=== PATIENT | female | born 1950 | race Caucasian/White ===

== ENCOUNTER 2020-03-14 10:40 | Outpatient (CLI) | payer MEDICARE, SELFPAY ==
--- NOTE | ~2020-03-14 | MR_ITS ---
EXAMINATION: MR chest wo con DATE: 03/14/2020 12:23 INDICATION: Anterior superior right chest mass. TECHNIQUE: Magnetic resonance imaging (MRI) of the chest was performed without intravenous contrast. Sequences included axial, coronal, and sagittal T1-weighted FSE, axial, coronal, and sagittal T2-weig hted FS FSE, coronal STIR FSE, axial T1-weighted FS FSE. COMPARISON: Right clavicle radiographs 10/20/2019 FINDINGS: There is a skin marker superficial to the medial right clavicle. Bone alignment is normal. No fracture. Bone marrow signal intensity is normal. There is no significant arthritis at the sternoc lavicular joints. There is a small effusion of right sternoclavicular joint. IMPRESSION: 1. Small effusion of the right sternoclavicular joint. Reviewed, dictated and finalized at location A.
== END 2020-03-14 10:41 | disposition home or self-care (01) ==
PROVIDERS: PCP Internal Medicine; Visit Provider Orthopaedic Surgery
DX: R22.2 Localized swelling, mass and lump, trunk (principal); M25.411 Effusion, right shoulder
CPT/HCPCS: 71550

== ENCOUNTER → 2020-11-22 16:16 | Outpatient (CLI) | payer MEDICARE, SELFPAY ==
--- NOTE | ~2020-11-22 | MM_ITS ---
EXAMINATION: MM screening [facility] BI w gwen HISTORY: Screening mammogram TECHNIQUE: Craniocaudal and mediolateral oblique 3-D tomosynthesis images were obtained and synthetic 2-D images were generated. CAD analysis was submitted and interpreted. COMPARISON: 10/14/2019, 08/29/2018, 08/07/2017 by lateral digital screening mammogram examinations BREAST PARENCHYMAL COMPOSITION: There are scattered areas of fibroglandular density. FINDINGS: There is no evidence of suspicious mass, calcification, or architectural distortion to sugg est malignancy in either breast. There has been no suspicious interval change. IMPRESSION: 1. No mammographic evidence of malignancy. 2. Recommend routine screening mammography in one year. BI-RADS Category 1: Negative Reviewed, dictated and finalized at location A. 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
== END ==
PROVIDERS: PCP Internal Medicine; Visit Provider Obstetrics & Gynecology Gynecology
DX: Z12.31 Encounter for screening mammogram for malignant neoplasm of breast (principal)
CPT/HCPCS: 77063; 77067

== ENCOUNTER 2021-04-27 14:00 | Outpatient (RCR) | payer MEDICARE, SELFPAY ==
--- NOTE | 2021-04-01 13:52 | PTOPEVAL ---
PHYSICAL THERAPY EVALUATION Thank you for referring Emily Ash to [facility].? Emily was evaluated for the dx of jaxson. hip bursitis. The patient is scheduled to be seen for therapy?2 x/week for 4 weeks. Please review, sign, date and return this plan of care OLIVIA. I agree with and certify that the following plan of care is medically necessary. Referring Physician Date Referring Provider: Duane Laurent MD *PT Outpatient Evaluation Start: 04/01/21 12:33 Freq: Status: Active Protocol: Document 04/01/21 12:34 MLV (Rec: 04/01/21 13:42 MLV [id number]) Therapy Assessment Status Assessment Status Assessment Status Evaluation Evaluation Information Problem Diagnosis jaxson hip bursitis Onset Oct 2020 Cause none Additional Evaluation Detail The patient began having jaxson. hip pain without an injury. The patient has right hip pain with walking and left hip pain with sit to stand motions . The patient likes to exercise with walking and riding a bicycle. The patient is retired and does her housework, cooking, and yardwork. Patient reports difficulty with house and yard work due to hip pain; affecting about 50% of normal tolerance. The patient is sleeping 25% less well due to hip pain also. Diagnostic Tests X-Rays For This Problem Yes: bursitis and OA jaxson. hips Pain Assessment Timing of Pain Assessment Timing of Pain Assessment Assessment Pain Scale Pain Scale Used Numeric (1 - 10) Self Report Pain Assessment Bilateral Hip(s) Reported Pain Level 0 Other Pain Description 6 with sleeping, 7 with movements at hips Pain Aggravating Factors Prolonged Position,Walking, Weight Bearing/Standing Other Pain Aggravating Factors sidelying Pain Score Pain Score 0: Self Report Interventions Used Interventions Used By Clinicians Education Pain Relief Interventions Used By Exercise,Medication,Position Patient Change Other Alleviating Interventions advil prn Lower Extremity Range of Motion General Lower Extremity Range of Motion Gross Lower Extremity Range of Motion right LE: hip IR 31', ER 38', Comments 90/90 hamstring -20', knee 0- 132', hip abduction/Kirstin WFL's,
--- NOTE | 2021-04-20 14:13 | PCPTNOTE ---
Patient did not show up for scheduled appointment this date. Called patient, left message with details on next appt time.
--- NOTE | 2021-06-10 15:43 | PCPTNOTE ---
PHYSICAL THERAPY DISCHARGE Attending Provider: Duane Laurent MD Patient:Emily Ash Date of :1950 Patient has not returned for any further treatments since 04/27/2021, therefore she will be discharged at this time. Patient?s initial visit was on 04/01/2021 12:30 and she had a total of 6 visits. The goals have been partially met. Thank you for referring this patient to [facility]. Please review, sign, date and return this discharge summary OLIVIA. I have been updated about the patient's current status and I agree with discharge from the above service at this time. Referring Physician Date
== END 2021-06-13 11:18 | disposition home or self-care (01) ==
LOC: ANHPT 14:00
PROVIDERS: PCP Internal Medicine; Referring Provider Orthopaedic Surgery; Visit Provider Orthopaedic Surgery
DX: M25.551 Pain in right hip (principal); M25.562 Pain in left knee; M71.9 Bursopathy, unspecified
CPT/HCPCS: 97014; 97110; 97140; 97162; G0283

== ENCOUNTER 2021-05-06 15:47 | Emergency (ER) | payer MEDICARE, SELFPAY ==
--- NOTE | ~2021-05-06 | CT_ITS ---
EXAMINATION: CT brain wo con DATE: 05/06/2021 18:23 INDICATION: Headache. TECHNIQUE: Computed tomography (CT) of the head was performed without intravenous contrast. The mA wa s adjusted according to patient size. Iterative reconstruction technique was employed. The dose-lengt h product was 529.67 mGy-cm. COMPARISON: Head CT 05/22/2017 FINDINGS: There is no intracranial hemorrhage, acute infarction, or abnormal intracranial mass lesion . The ventricles are normal in size. The orbits are normal. There is mucosal thickening in the parana gerber sinuses. There is near complete opacification of left sphenoid sinus with thickening and sclerosi s of the sinus barnes, consistent with chronic sinusitis. The mastoid air cells are normal. IMPRESSION: 1. Normal brain. 2. Chronic sinusitis. Reviewed, dictated and finalized at location A.
--- NOTE | ~2021-05-06 | XR_ITS ---
EXAMINATION: XR chest 2V DATE: 05/06/2021 16:42 INDICATION: Shortness of breath. TECHNIQUE: Frontal and lateral views of the chest were obtained. COMPARISON: Chest 2 views 05/22/2017, CT abdomen and pelvis 12/18/2018 FINDINGS: The chest demonstrates clear lungs without pneumonia, pleural effusion, or pneumothorax. Th e heart size is normal. Surgical clips in the right upper quadrant are likely from cholecystectomy. IMPRESSION: 1. No acute cardiopulmonary disease. Reviewed, dictated and finalized at location A.
--- NOTE | 2021-05-06 16:13 | ECG_ITS ---
Measurements Intervals [place] Rate: 110 P: 59 MN: 140 QRS: 33 QRSD: 109 T: 47 QT: 347 QTc: 470 Interpretive Statements SINUS TACHYCARDIA INCOMPLETE RIGHT BUNDLE BRANCH BLOCK BORDERLINE ST ABNORMALITY- ANTEROLAT/INF LEADS BASELINE ARTIFACT- V4 ABNORMAL ECG Electronically Signed On 05-06-2021 16:21:14 CDT by Bahman Hernandez D.O.
[2021-05-06 16:16] VITALS: BP 203/103; PULSE 118; RESP 20; TEMP 36.8; O2SAT 100
[2021-05-06 16:37] LABS: Basophils Absolute Auto 0.1 K/mm3 (0.0-0.1); Basophils Percent Auto 0.9 % (0.2-1.2); Eosinophils Absolute Auto 0.2 K/mm3 (0-0.3); Eosinophils Percent Auto 2.3 % (0-4.4); Hematocrit 39.6 % (37.0-47.0); Hemoglobin 13.1 g/dL (12.0-15.0); Immature Granulocyte Absolute 0.02 K/mm3 (0.00-0.031); Immature Granulocyte Percent A 0.3 % (0-0.5); Lymphocytes Absolute Auto 1.03 K/mm3 (0.9-3.2); Lymphocytes Percent Auto 16.1 % (18.3-44.2); Mean Corpuscular HGB Conc 33.1 g/dl (32-36); Mean Corpuscular Hemoglobin 29.5 pg (26-34); Mean Corpuscular Volume 89.2 fl (80-100); Mean Platelet Volume 9.3 fl (7.4-10.4); Monocytes Absolute Auto 0.6 K/mm3 (0.1-0.6); Neutrophils Absolute Auto 4.6 K/mm3 (1.3-6.7); Neutrophils Percent Auto 71.4 % (45.5-73.1); Platelet Count Result 322 k/mm3 (150-375); Red Blood Count 4.44 M/mm3 (4.2-5.4); Red Cell Distribution Width 12.5 % (11.5-14.5); White Blood Count 6.4 K/mm3 (4.5-10.0)
[2021-05-06 16:47] LABS: INR 0.9; Prothrombin Time 12.2 Seconds (11.1-14.7)
[2021-05-06 16:48] LABS: Partial Thromboplastin Time 25.7 SECONDS (22.3-36.8)
[2021-05-06 16:52] LABS: Anion Gap 13 mmol/L (8-16); Blood Urea Nitrogen 15 mg/dL (7-17); Calcium 9.8 mg/dL (8.4-10.2); Carbon Dioxide 22 mmol/L (22-30); Chloride 103 mmol/L (98-107); Estimated CRCL calculation 56 ml/min; Estimated Glomerular Filt Rate > 60; Glucose 112 mg/dL (65-110); Potassium 3.5 mmol/L (3.4-5.0); Sodium 138 mmol/L (137-145)
[2021-05-06 17:39] LABS: Troponin I < 0.012 ng/mL (0.000-0.034)
--- NOTE | 2021-05-06 17:57 | ED.GENADULT ---
HPI - General Adult General Chief complaint: Recheck/Abnormal Lab/Rx Stated complaint: elevated blood pressure Time Seen by Provider: 05/06/21 17:10 Source: patient and RN notes reviewed Mode of arrival: ambulatory Limitations: no limitations History of Present Illness HPI narrative: This is a 70 year old female with history of anxiety who presents for evaluation of headache and elevated blood pressure. Patient states this morning she developed a mild frontal headache while she was working outside. She states her headache has gradually worsened throughout the day . She describes headache as throbbing, and she denies associated nausea, focal weakness, numbness, or blurred vision. She has been taking her blood pressure daily due to high blood pressure on her last doctor visit. Her BP was elevated at her last doctor visit but it has been fine over the past 2 weeks when she is at home. She states her blood pressure is frequently high at doctors' offices. Today she checked her blood pressure and it was elevated. She has checked it multiple times today and she states each time her pressure was higher. She denies chest pain, sob. She does reports anxiousness . Related Data Home Medications Medication Instructions Recorded Confirmed cholecalciferol (vitamin D3) 25 25 mcg PO DAILY 03/14/21 03/14/21 mcg (1,000 unit) capsule levothyroxine 25 mcg tablet 25 mcg PO DAILY 03/14/21 03/14/21 Allergies Allergy/AdvReac Type Severity Reaction Status Date / Time No Known Allergies Allergy Verified 03/14/21 14:30 Review of Systems Review of Systems: All systems reviewed & are unremarkable except as noted in HPI and below PMFSH Past Medical History Medical History History of anesthesia problem History of anxiety History of arthritis History of depression History of headache History of high cholesterol History of hypothyroidism History of mitral valve disorder History of osteoporosis History of pterygium History of urinary frequency History of weight gain Surgical History Surgical History History of cholecystectomy History of knee surgery 2014 (surgery for shattered Lt. patella) 1969 (Meniscus Repair) Family History Family History (Updated 03/14/21 @ 17:41 by Gerri Macdonald) Father Family history of cardiovascular disease Family hx of lung cancer Sibling Carcinoma of colon Mother Family hx of lung cancer Other Depression Diabetes mellitus Family history of neuropathy Family history of oral cancer Heart disease Hypertension Social History Social History (Updated 03/14/21 @ 17:42 by Gerri Macdonald) Smoking status: Never smoker Alcohol intake: never Gender identity (if verbalized by the patient): Female Exam Const: General: no acute distress and alert Orientation/consciousness: patient oriented x3 HENMT: Head: normocephalic and atraumatic Face and sinus: normal facial exam, sinuses nontender and face symmetric Mouth: Yes Normal oral and palatal mucosa present, Yes lip normal, Yes oropharynx normal and Yes moist mucous membranes Eyes: Pupils: Equal, round and reactive pupils present EOM: EOMs intact bilaterally Chest: Chest palpation & inspection: normal inspection of the chest Resp: Effort & Inspection: normal respiratory effort and no retractions Auscultation: clear to auscultation bilaterally Cardio: Rate: regular rate Rhythm: regular rhythm Heart sounds: no murmurs GI: GI Palp: Yes Soft to palpation, No Tenderness to palpation present (GI) and No Guarding due to palpation present (GI) Auscultation: normal bowel sounds Neuro: General: patient oriented x3, moves all extremities, no meningeal signs, no focal motor deficits and CN's II-XI intact bilaterally Cranial nerves: Yes Nystagmus not present Speech: normal speech Extrem: Ge
--- NOTE | 2021-05-06 18:15 | PC.NURSE ---
pt taken to CT at this time.
[2021-05-06] MEDS: ONDANSETRON INJ 4 MG/2 ML VIAL IV PUSH (18:24)
[2021-05-06] MEDS: SODIUM CHLORIDE 0.9% IV 500 ML 999 ML IV CONT (18:24)
[2021-05-06] MEDS: LORazepam INJ (*CRX) 2 MG/ML VIAL 0.5 MG IV PUSH (18:25)
[2021-05-06 18:26] VITALS: BP 175/90; PULSE 92; RESP 16; O2SAT 98
[2021-05-06 19:44] VITALS: BP 148/78; PULSE 91; RESP 18; O2SAT 100
[2021-05-06 20:07] LABS: Troponin I < 0.012 ng/mL (0.000-0.034)
[2021-05-06 21:25] VITALS: BP 137/79; PULSE 86; RESP 21; O2SAT 100
== END 2021-05-06 21:25 | disposition home or self-care (01) ==
PROVIDERS: Emergency Medicine; Emergency Provider General Practice; PCP Internal Medicine
DX: F41.9 Anxiety disorder, unspecified (principal); R03.0 Elevated blood-pressure reading, without diagnosis of hypertension; J32.9 Chronic sinusitis, unspecified; E03.9 Hypothyroidism, unspecified; E78.00 Pure hypercholesterolemia, unspecified; M19.90 Unspecified osteoarthritis, unspecified site; M81.0 Age-related osteoporosis without current pathological fracture; R00.0 Tachycardia, unspecified; I45.10 Unspecified right bundle-branch block; R94.31 Abnormal electrocardiogram [ECG] [EKG]
CPT/HCPCS: 36415; 70450; 71046; 80048; 84484; 85025; 85610; 85730; 93005; 96365; 96375; 99284; J0131; J2060; J2405; J7040

== ENCOUNTER 2021-12-28 14:32 | Outpatient (CLI) | payer MEDICARE, SELFPAY ==
--- NOTE | ~2021-12-28 | MM_ITS ---
EXAMINATION: MM screening [facility] BI w gwen HISTORY: Screening mammogram TECHNIQUE: Craniocaudal and mediolateral oblique 3-D tomosynthesis images were obtained and synthetic 2-D images were generated. CAD analysis was submitted and interpreted. COMPARISON: 11/22/2020, 10/14/2019, 08/29/2018 BREAST PARENCHYMAL COMPOSITION: There are scattered areas of fibroglandular density. FINDINGS: There is no suspicious mass, calcification, or architectural distortion to suggest malignan cy in either breast. There has been no suspicious interval change. IMPRESSION: 1. No mammographic evidence of malignancy. 2. Recommend routine screening mammography in one year. BI-RADS Category 1: Negative Reviewed, dictated and finalized at location A.
== END 2021-12-28 14:33 | disposition home or self-care (01) ==
LOC: ANHIMG 14:34
PROVIDERS: PCP Internal Medicine; Visit Provider Obstetrics & Gynecology Gynecology
DX: Z12.31 Encounter for screening mammogram for malignant neoplasm of breast (principal)
CPT/HCPCS: 77063; 77067

== ENCOUNTER 2022-05-30 00:46 | Day surgery (SDC) | payer MEDICARE, SELFPAY ==
[2022-05-18 11:04] VITALS: BMI 26.3
[2022-05-30 06:19] VITALS: BP 154/88; PULSE 99; RESP 16; TEMP 36.4; O2SAT 99; BMI 26.6
[2022-05-30] MEDS: LACTATED RINGERS 1,000 ML 150 ML IV CONT (06:27)
--- NOTE | 2022-05-30 07:20 | PM.HPGS ---
History of Present Illness History of Present Illness Consent: Risks, benefits, and alternatives have been discussed and questions answered. Patient agrees to proceed with procedure. Chief complaint: hx of colon polyps Narrative: Emily Ash is a 71 year old female with last colonoscopy 7 years ago, she had polyps previously Review of Systems Constitutional: Constitutional: Denies headache(s) and Denies weakness Eyes: Eyes: Denies blurry vision ENT: Reports Normal hearing present, Denies headache(s) and Denies neck pain Cardiovascular: Cardiovascular: Denies chest pain and Denies dyspnea Respiratory: Respiratory: Denies dyspnea Gastrointestinal: Gastrointestinal: Reports no additional gastrointestinal complaints Genitourinary: Genitourinary: Denies dysuria Musculoskeletal: Musculoskeletal: Denies neck pain Integumentary/Breasts: Skin/Breast: Denies dry skin Neurologic: Reports Normal hearing present, Denies headache(s) and Denies weakness Psychiatric: Psychiatric: Denies anxiety Endocrine: Endocrine: Denies change in body appearance Hematologic/Lymphatic: Hematologic/Lymphatic: Denies easy bleeding Allergic/Immunologic: Allergic/Immunologic: Denies urticaria PMF Past Medical History Medical History (Updated 05/30/22 @ 07:21 by Ramírez Gee MD) Colon cancer screening History of anesthesia problem History of anxiety History of arthritis History of depression History of headache History of high cholesterol History of hypothyroidism History of mitral valve disorder History of osteoporosis History of pterygium History of urinary frequency History of weight gain Surgical History Surgical History History of cholecystectomy History of knee surgery 2014 (surgery for shattered Lt. patella) 1969 (Meniscus Repair) Family History Family History Father Family history of cardiovascular disease Family hx of lung cancer Sibling Carcinoma of colon Mother Family hx of lung cancer Other Depression Diabetes mellitus Family history of neuropathy Family history of oral cancer Heart disease Hypertension Social History Social History Smoking status: Never smoker Alcohol intake: never Substance use: never Living arrangements: with family Gender identity (if verbalized by the patient): Female Meds Home Medications and Allergies Home Medications Medication Instructions Recorded Confirmed Type cholecalciferol (vitamin D3) 25 25 mcg PO DAILY 03/14/21 05/30/22 History mcg (1,000 unit) capsule levothyroxine 25 mcg tablet 25 mcg PO DAILY 03/14/21 05/30/22 History (Euthyrox) fluticasone propionate 50 1 spray intranasal BID #16 grams 05/06/21 05/30/22 Rx mcg/actuation nasal spray,suspension (Flonase Allergy Relief) loratadine 10 mg tablet (Claritin) 10 mg PO DAILY #14 tabs 05/06/21 05/30/22 Rx lorazepam 0.5 mg tablet (Ativan) 0.5 mg PO BID PRN anxiety #10 tabs 05/06/21 05/30/22 Rx duloxetine 20 mg capsule,delayed 20 mg PO DAILY 05/18/22 05/30/22 History release spironolactone 25 mg tablet 25 mg PO DAILY 05/18/22 05/30/22 History Allergies Allergy/AdvReac Type Severity Reaction Status Date / Time water for injection,sterile Allergy Mild Unknown Verified 05/30/22 06:18 [From Reclast] zoledronic acid Allergy Mild Unknown Verified 05/30/22 06:18 [From Reclast] Vital Signs Vital Signs - 24 hr 05/30/22 06:19 Temperature 97.5 F L Pulse Rate 99 Respiratory Rate 16 Blood Pressure 154/88 H Pulse Oximetry 99 Oxygen Delivery Room Air Exam Const: General: comfortable and no acute distress HENMT: General nose exam: Normal nares present Eyes: General: appearance normal, both eyes and all related structures Neck: Neck: no JVD Resp:
--- NOTE | 2022-05-30 07:31 | WPDANESEPPF ---
Anes - Initial Pre Proc Eval Procedure: Operation Date: 05/30/22 07:30 Proposed Procedures p Screening Colonoscopy - Ramírez Gee MD Date/Time: 05/30/22 07:31 Surgeon: Ramírez Gee MD Pre Op Diagnosis: hx of colon polyps Patient Data Age: 71 Gender: F Height: 1.63 m Weight: 70.3 kg Last Vital Signs Temp 97.5 F L 05/30/22 06:19 Pulse 99 05/30/22 06:19 Resp 16 05/30/22 06:19 BP 154/88 H 05/30/22 06:19 Pulse Ox 99 05/30/22 06:19 O2 Del Method Room Air 05/30/22 06:19 Allergies Allergy/AdvReac Type Severity Reaction Status Date / Time water for injection,sterile Allergy Mild Unknown Verified 05/30/22 06:18 [From Reclast] zoledronic acid Allergy Mild Unknown Verified 05/30/22 06:18 [From Reclast] Home Medications Medication Instructions Recorded Confirmed Type cholecalciferol (vitamin D3) 25 25 mcg PO DAILY 03/14/21 05/30/22 History mcg (1,000 unit) capsule levothyroxine 25 mcg tablet 25 mcg PO DAILY 03/14/21 05/30/22 History (Euthyrox) fluticasone propionate 50 1 spray intranasal BID #16 grams 05/06/21 05/30/22 Rx mcg/actuation nasal spray,suspension (Flonase Allergy Relief) loratadine 10 mg tablet (Claritin) 10 mg PO DAILY #14 tabs 05/06/21 05/30/22 Rx lorazepam 0.5 mg tablet (Ativan) 0.5 mg PO BID PRN anxiety #10 tabs 05/06/21 05/30/22 Rx duloxetine 20 mg capsule,delayed 20 mg PO DAILY 05/18/22 05/30/22 History release spironolactone 25 mg tablet 25 mg PO DAILY 05/18/22 05/30/22 History Patient hx anesthesia problems: none Family hx anesthesia problems: none Results Review: All pre-operative results and documents have been reviewed as part of the pre-operative evaluation. [facility] Past Medical History Medical History (Updated 05/30/22 @ 07:21 by Ramírez Gee MD) Colon cancer screening History of anesthesia problem History of anxiety History of arthritis History of depression History of headache History of high cholesterol History of hypothyroidism History of mitral valve disorder History of osteoporosis History of pterygium History of urinary frequency History of weight gain Surgical History Surgical History History of cholecystectomy History of knee surgery 2014 (surgery for shattered Lt. patella) 1969 (Meniscus Repair) Family History Family History Father Family history of cardiovascular disease Family hx of lung cancer Sibling Carcinoma of colon Mother Family hx of lung cancer Other Depression Diabetes mellitus Family history of neuropathy Family history of oral cancer Heart disease Hypertension Social History Social History Smoking status: Never smoker Alcohol intake: never Substance use: never Living arrangements: with family Gender identity (if verbalized by the patient): Female Anes - Eval Final PreProcedure Day of Procedure 05/30/22 07:31 Patient weight: normal Heart: regular rate and rhythm Lungs: clear to auscultation Airway: Mallampati scale class II Neurological: alert and oriented Last oral intake: >/= 8 hours ASA classification: II Emergent: no Anesthetic plan: proceed Anesthesia type and monitoring: general GIVS and standard monitoring Results Review: All pre-operative results and documents have been reviewed as part of the pre-operative evaluation. Informed Consent: The patient's anesthetic plan and its attendant risks and benefits were discussed with the patient/family/POA. Questions were solicited and answers provided to the satisfaction of the patient/family/POA.
[2022-05-30 07:50] VITALS: BP 141/82; PULSE 105; RESP 20; O2SAT 100
[2022-05-30 08:00] VITALS: BP 156/89; PULSE 92; RESP 17; O2SAT 100
[2022-05-30 08:10] VITALS: BP 158/92; PULSE 94; RESP 15; O2SAT 100
== END 2022-05-30 08:16 | disposition home or self-care (01) ==
PROVIDERS: PCP Internal Medicine; Visit Provider Internal Medicine Gastroenterology
PROC: 0DJD8ZZ Inspection of Lower Intestinal Tract, Via Natural or Artificial Opening Endoscopic (ICD-10-PCS; CPT 45378; principal; 2022-05-30 07:30)
DX: Z12.11 Encounter for screening for malignant neoplasm of colon (principal); D12.2 Benign neoplasm of ascending colon; K57.30 Diverticulosis of large intestine without perforation or abscess without bleeding; F41.9 Anxiety disorder, unspecified; M19.90 Unspecified osteoarthritis, unspecified site; F32.A Depression, unspecified; E78.00 Pure hypercholesterolemia, unspecified; E03.9 Hypothyroidism, unspecified; I34.8 Other nonrheumatic mitral valve disorders; M81.0 Age-related osteoporosis without current pathological fracture
CPT/HCPCS: 45385; 88305; J2704; J7120

== ENCOUNTER → 2023-01-01 15:12 | Outpatient (CLI) | payer MEDICARE, SELFPAY ==
--- NOTE | ~2023-01-01 | MM_ITS ---
EXAMINATION: MM screening [facility] BI w gwen HISTORY: Screening mammogram TECHNIQUE: Craniocaudal and mediolateral oblique 3-D tomosynthesis images were obtained and synthetic 2-D images were generated. CAD analysis was submitted and interpreted. COMPARISON: 12/28/2021, 11/22/2020, 10/14/2019 bilateral screening mammogram examinations BREAST PARENCHYMAL COMPOSITION: There are scattered areas of fibroglandular density. FINDINGS: There is no evidence of suspicious mass, calcification, or architectural distortion to sugg est malignancy in either breast. There has been no suspicious interval change. IMPRESSION: 1. No mammographic evidence of malignancy. 2. Recommend routine screening mammography in one year. BI-RADS Category 1: Negative Reviewed, dictated and finalized at location A.
== END ==
PROVIDERS: PCP Internal Medicine; Visit Provider Obstetrics & Gynecology Gynecology
DX: Z12.31 Encounter for screening mammogram for malignant neoplasm of breast (principal)
CPT/HCPCS: 77063; 77067

== ENCOUNTER 2023-10-24 21:36 | Emergency (ER) | payer MEDICARE, OTHER, SELFPAY ==
--- NOTE | ~2023-10-24 | CT_ITS ---
CT ANGIOGRAM NECK AND HEAD History: Headache. Technique: Axial noncontrast imaging of the brain was performed. Serial spiral axial images through t he head and neck were then obtained during arterial phase IV injection of 100 cc of Omnipaque 350. 3- D postprocessing and MIP images were then reconstructed on the remote workstation. Dose reduction chantelle hnique was used on this scan by utilizing automated exposure control and iterative reconstruction chantelle hnique. The dose-length product (DLP) was 1509.44 mGy-cm. CTA neck findings: Bilateral vertebral arteries are patent. Bilateral common carotid, internal carot id, and external carotid arteries are patent. There is mixed calcified and soft plaque at the origin of the left internal carotid artery, with probable very low-grade, 5% stenosis. No other stenosis olimpia ntified. No large vessel occlusion. No aneurysm. The proximal right internal carotid artery demonstra kathie 0% stenosis relative to the normal distal artery lumen diameter. The proximal left internal carot id artery demonstrates 5% stenosis relative to the normal distal artery lumen diameter. CTA head findings: Distal vertebral ovaries, basilar artery, and posterior cerebral arteries are kenney nt. Distal internal carotid arteries, middle cerebral arteries, and anterior cerebral arteries are pa tent. No large vessel occlusion. No stenosis or aneurysm. Axial noncontrast images imaging of the brain is unremarkable. No acute infarct, intracranial hemorrh age, or mass lesion identified. Brito-white differentiation preserved. Ventricles and subarachnoid spa sarah are unremarkable. There is left sphenoid sinus disease. Remaining paranasal sinuses and mastoid a ir cells are clear. Impression: No hemodynamically significant stenosis. Low-grade 5% stenosis at the proximal left internal carotid artery. Reviewed, dictated and finalized at location M. ICAL OUTCOMES MANAGER Impression: No hemodynamically significant stenosis. Low-grade 5% stenosis at the proximal left internal carotid artery.
[2023-10-24 21:36] VITALS: BP 175/83; PULSE 115; RESP 18; TEMP 36.6; O2SAT 100
--- NOTE | 2023-10-24 21:37 | ECG_ITS ---
Measurements Intervals [place] Rate: 110 P: 59 PA: 132 QRS: 31 QRSD: 114 T: 45 QT: 335 QTc: 454 Interpretive Statements SINUS TACHYCARDIA INCOMPLETE RIGHT BUNDLE BRANCH BLOCK BORDERLINE ST ABNORMALITY- ANTEROLAT/INF LEADS ABNORMAL ECG COMPARED TO ECG 05/06/2021 16:18:31 NO SIGNIFICANT CHANGES Electronically Signed On 10-25-2023 6:35:06 ESTHETICIAN AND MANAGER [employer]PA by Bahman Hernandez D.O.
[2023-10-25 01:31] VITALS: BP 167/97; PULSE 98; RESP 17; O2SAT 97
[2023-10-25 01:36] LABS: Basophils Absolute Auto 0.1 K/mm3 (0.0-0.1); Basophils Percent Auto 1.5 % (0.2-1.2); Eosinophils Absolute Auto 0.1 K/mm3 (0-0.3); Eosinophils Percent Auto 1.9 % (0-4.4); Hematocrit 37.2 % (37.0-47.0); Hemoglobin 12.4 g/dL (12.0-15.0); Immature Granulocyte Absolute 0.03 K/mm3 (0.00-0.031); Immature Granulocyte Percent A 0.5 % (0-0.5); Lymphocytes Absolute Auto 1.28 K/mm3 (0.9-3.2); Mean Corpuscular HGB Conc 33.3 g/dl (32-36); Mean Corpuscular Volume 89.9 fl (80-100); Mean Platelet Volume 8.8 fl (7.4-10.4); Monocytes Absolute Auto 0.7 K/mm3 (0.1-0.6); Monocytes Percent Auto 11.5 % (2.6-8.5); Neutrophils Absolute Auto 3.7 K/mm3 (1.3-6.7); Neutrophils Percent Auto 62.6 % (45.5-73.1); Platelet Count Result 397 k/mm3 (150-375); Red Blood Count 4.14 M/mm3 (4.2-5.4); Red Cell Distribution Width 12.4 % (11.5-14.5); White Blood Count 5.8 K/mm3 (4.5-10.0)
[2023-10-25 01:40] LABS: Appearance Urine Clear (Clear); Bacteria Urine None Seen /hpf; Bilirubin Urine Negative (Negative); Color Urine Yellow (Yellow); Glucose Urine UA Negative (Negative); Ketones Urine Trace mg/dL (Negative); Leukocyte Esterase Ur Negative LEU/UL (Negative); Nitrate Urine Negative (Negative); Non Pathogenic Casts 0-2; Protein Urine Negative (Negative); RBC Urine 0-2 /hpf (0-2); Specific Grav Ur 1.005 (1.001-1.035); Squamous Epithelial Cell Urine None seen /hpf (Few); Urobilinogen Urine 0.2 mg/dL (<2.0); WBC Urine 0-5 /hpf
[2023-10-25] MEDS: LORazepam INJ (*CRX) 2 MG/ML VIAL 0.5 MG IV PUSH (01:40)
[2023-10-25 01:43] LABS: Lactic Acid Reflex 1.1 mmol/L (0.7-2.0)
[2023-10-25 01:45] LABS: Alanine Aminotransferase 21 U/L (6-35); Albumin Level 4.7 g/dL (3.5-5.1); Alkaline Phosphatase 73 U/L (38-126); Anion Gap 12 mmol/L (8-16); Aspartate Amino Transferase 31 U/L (14-36); Bilirubin,Total 0.6 mg/dL (0.2-1.3); Blood Urea Nitrogen 22 mg/dL (7-17); Calcium 10.7 mg/dL (8.4-10.2); Carbon Dioxide 22 mmol/L (22-30); Chloride 102 mmol/L (98-107); Estimated CRCL calculation 33 ml/min; Estimated Glomerular Filt Rate 44; Glucose 104 mg/dL (65-110); Magnesium 2.2 mg/dL (1.6-2.3); Sodium 136 mmol/L (137-145)
[2023-10-25 01:48] LABS: CRP < 0.5 mg/dL (<1.0)
[2023-10-25 01:56] LABS: Add Urine Microscopic? YES; Troponin I < 0.012 ng/mL (0.000-0.034)
--- NOTE | 2023-10-25 02:39 | ED.GENADULT ---
HPI - General Adult General Chief complaint: Headache Stated complaint: 3 week headache Time Seen by Provider: 10/25/23 00:22 History of Present Illness HPI narrative: patient 73-year-old female who presents emergency department chief complaint of headache. Patient states for the last several days to several weeks she has been having discomfort on the left side of her head the patient states that it is in the temporal area reports that radiates down into her jaw patient reports that has been off and on reports that currently the discomfort is essentially resolved. The patient denies fever denies chest pain denies shortness of breath reports no focal neurological deficit Related Data Home Medications Medication Instructions Recorded Confirmed cholecalciferol (vitamin D3) 25 25 mcg PO DAILY 03/14/21 06/20/23 mcg (1,000 unit) capsule levothyroxine 25 mcg tablet 25 mcg PO DAILY 03/14/21 06/20/23 (Euthyrox) spironolactone 25 mg tablet 25 mg PO DAILY 05/18/22 06/20/23 escitalopram oxalate 10 mg tablet 10 mg PO DAILY 07/20/22 06/20/23 Allergies Allergy/AdvReac Type Severity Reaction Status Date / Time water for injection,sterile Allergy Mild Unknown Verified 10/25/23 00:19 [From Reclast] zoledronic acid Allergy Mild Unknown Verified 10/25/23 00:19 [From Reclast] Review of Systems Review of Systems: A 10 system review of systems was completed on the patient and is negative except for what is stated in the HPI. Nursing and ancillary documentation was reviewed. [facility] Past Medical History Medical History Arthritis of right acromioclavicular joint Colon cancer screening History of anesthesia problem History of anxiety History of arthritis History of depression History of headache History of high cholesterol History of hypothyroidism History of mitral valve disorder History of osteoporosis History of pterygium History of urinary frequency History of weight gain Right lateral epicondylitis Right rotator cuff tear Surgical History Surgical History History of cholecystectomy History of knee surgery 2014 (surgery for shattered Lt. patella) 1969 (Meniscus Repair) Family History Family History Father Family history of cardiovascular disease Family hx of lung cancer Sibling Carcinoma of colon Mother Family hx of lung cancer Unknown Osteoporosis Other Depression Diabetes mellitus Family history of neuropathy Family history of oral cancer Heart disease Hypertension Social History Social History Smoking status: Never smoker Alcohol intake: never Substance use: never Lack of Transportation: No Lack of Food: Never True Current Housing: I Have Housing Concerned About Future Housing: No Difficulty Paying Gas/Electric Bills: No Difficulty Paying for Meds: No Currently Unemployed: No Education: High School Diploma/GED Difficulty w/ Childcare or Family Care: No Living arrangements: with family Occupation/Education: retired Gender identity (if verbalized by the patient): Female Exam Narrative: GENERAL: Well-appearing, well-nourished, and in no acute distress. HEAD: Normocephalic, atraumatic. EYES: PERRLA and EOMI. ENT: Nares clear, no rhinorrhea or epistaxis. Mucous membranes moist. NECK: Supple. CHEST: Clear to auscultation. No respiratory distress. HEART: Regular rate and rhythm. No murmur heard. Normal peripheral pulses. ABDOMEN: Soft, nontender, nondistended, normal active bowel sounds. EXTREMITIES: Normal range of motion. No edema. SKIN: Warm, dry, no rash. NEURO: No focal deficits. Alert and oriented x3. PSYCH: Normal mood and affect. Course Vital Signs Vital sig
[2023-10-25 02:59] LABS: Erythrocyte Sedimentation Rate 34 mm/hr (0-20)
[2023-10-25] MEDS: diphenhydrAMINE HCl INJ 50 MG/ML VIAL 25 MG IV PUSH (03:43)
[2023-10-25] MEDS: METOCLOPRAMIDE HCL INJ 10 MG/2 ML VIAL IV PUSH (03:43)
== END 2023-10-25 04:05 | disposition home or self-care (01) ==
PROVIDERS: Emergency Provider Emergency Medicine; PCP Internal Medicine
DX: R51.9 Headache, unspecified (principal); M19.90 Unspecified osteoarthritis, unspecified site; F41.9 Anxiety disorder, unspecified; F32.A Depression, unspecified; E03.9 Hypothyroidism, unspecified
CPT/HCPCS: 36415; 70496; 70498; 80053; 81001; 83605; 83735; 84484; 85025; 85652; 86140; 93005; 96374; 96375; 99284; J1200; J2060; J2765; Q9967

== ENCOUNTER 2023-11-07 12:36 | Outpatient (CLI) | payer MEDICARE, OTHER, SELFPAY ==
--- NOTE | ~2023-11-07 | XR_ITS ---
Right Shoulder Technique: AP and scapular Y views were obtained. Clinical History: Rotator cuff tear Findings: No fracture or dislocation is seen. Osseous alignment is anatomic. There is minimal degener ative change of the glenohumeral and acromioclavicular joints. Soft tissues are unremarkable. Impression: Minimal degenerative change, as above. Reviewed, dictated and finalized at [facility]. 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
--- NOTE | ~2023-11-07 | XR_ITS ---
Right elbow Technique: AP and lateral views were obtained. Clinical History: Pain Findings: No acute fracture or dislocation is seen. Osseous alignment is anatomic. Joint spaces are p reserved. There is no displacement of the fat pads, and soft tissues are unremarkable. Impression: Unremarkable radiographs. Reviewed, dictated and finalized at location . X OPERATOR Impression: Unremarkable radiographs.
== END 2023-11-07 12:37 | disposition home or self-care (01) ==
LOC: ANHIMG 12:41
PROVIDERS: PCP Internal Medicine; Visit Provider Orthopaedic Surgery
DX: M19.011 Primary osteoarthritis, right shoulder (principal); M75.101 Unspecified rotator cuff tear or rupture of right shoulder, not specified as traumatic; M77.11 Lateral epicondylitis, right elbow
CPT/HCPCS: 73030; 73070

== ENCOUNTER 2023-11-16 09:55 | Outpatient (CLI) | payer MEDICARE, OTHER, SELFPAY ==
--- NOTE | ~2023-11-16 | MR_ITS ---
MRI of the right shoulder Technique: Axial proton-density fat-sat images, coronal proton density fat-sat and T2 fat-sat images, and sagittal T1-weighted and T2 fat-sat images were acquired. Clinical History: Rotator cuff tear Findings: There is mild AC joint degenerative change, with reactive marrow edema at the acromion and mild bony productive change of the distal clavicle. Coracoclavicular, coracoacromial, and coracohumer al ligaments are intact. There is a 1.6 x 0.9 cm area of full-thickness tearing at the distal supraspinatus tendon insertion. There is background moderate to advanced supraspinatus tendinosis and probable partial tearing of the posterior portion of the supraspinatus tendon which is significantly thinned. Infraspinatus tendon i s intact, without partial or full-thickness tear. Subscapularis tendon is intact with mild tendinosis . Tendon of long head of the biceps is intact. No definite labral tear identified. Inferior glenohumeral ligament is intact. There is small to moderate glenohumeral joint effusion with fluid passing through the rotator cuff defect into the subacromial/subdeltoid bursa. There is fluid distention of the subcoracoid bursa as well. No degenerative change of the glenohumeral joint. No mus fabiana atrophy or edema. Impression: 1.6 x 0.9 cm full-thickness tear of the distal supraspinatus tendon, with probable partial thickness tearing of the more posterior portion of the tendon, which is significantly thinned. Subcoracoid bursitis. Mild AC joint degenerative change. Background rotator cuff tendinosis, as above. Reviewed, dictated and finalized at [facility]. ATION TENDER Impression: 1.6 x 0.9 cm full-thickness tear of the distal supraspinatus tendon, with proba ble partial thickness tearing of the more posterior portion of the tendon, whic h is significantly thinned. Subcoracoid bursitis. Mild AC joint degenerative change. Background rotator cuff tendinosis, as above.
== END 2023-11-16 09:56 ==
PROVIDERS: PCP Internal Medicine; Visit Provider Orthopaedic Surgery
DX: M75.121 Complete rotator cuff tear or rupture of right shoulder, not specified as traumatic (principal); M19.011 Primary osteoarthritis, right shoulder
CPT/HCPCS: 73221

== ENCOUNTER 2024-01-29 13:55 | Outpatient (CLI) | payer MEDICARE, OTHER, SELFPAY ==
--- NOTE | ~2024-01-29 | MM_ITS ---
EXAMINATION: MM screening kellie BI w gwen HISTORY: Screening mammogram TECHNIQUE: Craniocaudal and mediolateral oblique 3-D tomosynthesis images were obtained and synthetic 2-D images were generated. CAD analysis was submitted and interpreted. COMPARISON: January 01, 2023, December 28, 2021 bilateral screening mammogram images BREAST PARENCHYMAL COMPOSITION: There are scattered areas of fibroglandular density. FINDINGS: There is no evidence of suspicious mass, calcification, or architectural distortion to sugg est malignancy in either breast. There has been no suspicious interval change. IMPRESSION: 1. No mammographic evidence of malignancy. 2. Recommend routine screening mammography in one year. BI-RADS Category 1: Negative Reviewed, dictated and finalized at location A.
== END 2024-01-29 13:56 ==
PROVIDERS: PCP Internal Medicine; Visit Provider Obstetrics & Gynecology Gynecology
DX: Z12.31 Encounter for screening mammogram for malignant neoplasm of breast (principal)
CPT/HCPCS: 77063; 77067

== ENCOUNTER 2025-02-17 12:54 | Outpatient (CLI) | payer MEDICARE, OTHER, SELFPAY ==
--- NOTE | ~2025-02-17 | MM_ITS ---
EXAMINATION: MM screening kellie BI w gwen HISTORY: Screening TECHNIQUE: Craniocaudal and mediolateral oblique 3-D tomosynthesis images were obtained and synthetic 2-D images were generated. CAD analysis was submitted and interpreted. COMPARISON: Comparison to multiple prior studies sequentially, with oldest reviewed study dated 08/02. BREAST PARENCHYMAL COMPOSITION: Not dense: There are scattered areas of fibroglandular density. FINDINGS: There is no evidence of suspicious mass, calcification, or architectural distortion to sugg est malignancy in either breast. There has been no suspicious interval change. IMPRESSION: 1. No mammographic evidence of malignancy. 2. Recommend routine screening mammography in one year. BI-RADS Category 1: Negative Reviewed, dictated and finalized at location B.
== END 2025-02-17 12:55 | disposition home or self-care (01) ==
LOC: MICIMG 12:57
PROVIDERS: PCP Internal Medicine; Visit Provider Obstetrics & Gynecology Gynecology
DX: Z12.31 Encounter for screening mammogram for malignant neoplasm of breast (principal)
CPT/HCPCS: 77063; 77067

== ENCOUNTER 2025-07-12 17:39 | Emergency (ER) | payer MEDICARE, OTHER, SELFPAY ==
--- OUTSIDE RECORDS SUMMARY | 2023-06-21 08:08 | XMS_ITS | Continuity of Care Document ---
Author Organization [facility] Address [address] [place] [address] Phone Care Team Providers Care Timber Robber Name Role Phone Maverick Pastor MD Unavailable Unavailable Advance Directives Directive Yes / No Effective Date File Name No Information Encounters Encounter Description Practice Location Reason(s) For Visit Diagnoses Date Provider Providers Copied on Encounter [facility], [address], [id number], [place] tel:[phone] [facility] No Information 3 Dawit Temple. [address], [facility] [facility] [address], [place], [place], [id number] , [place]. tel: [phone] Family History Family Member Type Diagnosis Age At Onset No Information Payers Payer name Insurance type Covered libertarian ID Authoriza tion(s) No Information Social History Type Description Quantity Date Captured Comments Sex Female Smoking Status No Information Chief Complaint And Reason For Visit No Information Reason For Referral Reason For Referral No Information History Of Present Illness Encounter Date Complaint History Of Prese nt Illness No Information Functional Status Date Functional Assessmen t No Information Instructions Date Instruction Additional Infor mation No Information Assessments Type Assessment Date No Information Patient Care Teams Name Effective Dates (start - stop) Status Members No Information
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
--- NOTE | 2025-07-12 17:54 | ECG_ITS ---
Test Date: 2025-07-12 18:24:21 Measurements Intervals [place] Rate: 97 P: 66 IA: 174 QRS: 47 QRSD: 110 T: 43 QT: 385 QTc: 490 Interpretive Statements SINUS RHYTHM INCOMPLETE RIGHT BUNDLE BRANCH BLOCK ST-T WAVE ABNORMALITY IN ATERIOR LEADS- CONSIDER ISCHEMIA BASELINE ARTIFACT- I, II, III, AVL ABNORMAL ECG No previous ECG available for comparison Electronically Signed On 07-12-2025 19:52:24 CDT by Bahman Hernandez D.O.
[2025-07-12 17:59] VITALS: BP 178/88; PULSE 101; RESP 16; O2SAT 100
--- OUTSIDE RECORDS SUMMARY | 2025-07-12 18:04 | XMS_ITS | Clinical Summary ---
Author Organization [facility] Address [address] [place] [address] Care Team Providers Care [employer] Name Role Phone Tejinder Miller MD Primary Care Provider Allergies Active Allergy Reactions Criticality Noted Date Comments Oxycodone Mental status changes,Nausea only Low 03/07/2024 Makes me feel loopy Water For Injection,Sterile Rash Medium 11/07/2023 Zoledronic Acid Rash Medium 11/07/2023 Medications calcium carbonate-vitam in D3 1,250mg (500mg elemental) - 5 mcg (200 units) per tablet Take 1 tablet by mouth 2 (two) times a day with meals Active multivit-minera ls/folic acid (CENTRUM ADULTS ORAL)Indication s:supplement Take 1 tablet by mouth daily Active ergocalciferol (VITAMIN D) 50,000 unit capsule TAKE 1 CAPSULE (50,000 UNITS TOTAL) BY MOUTH EVERY 14 DAYS 6 capsule 3 4 Active levothyroxine (SYNTHROID) 25 mcg tabletIndicatio ns:Hypothyroidi sm, unspecified type Take 1 tablet (25 mcg total) by mouth daily 90 tablet 3 5 Active escitalopram (LEXAPRO) 10 mg tablet TAKE 1 TABLET BY MOUTH EVERY DAY 90 tablet 1 5 Active nirmatrelvir 300 mg-ritonavir 100 mg (PAXLOVID 300mg-100 mg) tablets,dose pack tablets in a dose pack Take 300 mg nirmatrelvir (2 x 150 mg tablets) with 100 mg ritonavir (1 x 100 mg tablet) with all three tablets taken together by mouth twice daily for 5 days. 30 tablet 5 025 Active Problems Problem Noted Date Diagnosed Date Obstructive sleep apnea syndrome 12/02/2024 Tear of right rotator cuff 01/09/2024 Biceps tendinitis of right upper extremity 01/08 Hair loss 05/26/2022 Anxiety 05/26/2022 Basal cell carcinoma 05/26/2022 Overview (05/26/2022): Had mohs surgery 2021 Age-related osteoporosis wit hout current pathological fracture 01/06/2020 Overview (01/06/2020): Zoledronic acid May 2017 - dizziness nausea and vomiting to ER, calcium 600 mg 1-2 daily, ergocalciferol twice monthly Past bone RX: Reclast 03/2016 no AE's, risedronate 10 years on and off Activity: ADL's, walks 45 minutes 3 days a week FX HX: Patella Encounters Date Type Department Care Team Description 06/23/2025 Orders Only [facility] [address] [place] [phone] Tejinder Miller MD 06/23/2025 Telephone [facility] [address] [place] [phone] Tejinder Miller MD Lab Results 06/23/2025 Telephone [facility] [address] [place] [phone] Tejinder Miller MD Covid-19 Questions 06/12/2025 1:40 PM CDT Office Visit [facility] [address] [facility] [facility] Medical Office [address] [place] [address] Yasmine Prather MD Age-related osteoporosis without current pathological fracture (Primary Dx) 06/12/2025 1:10 PM CDT Clinical Support [facility] [address] [place] [address] Medical Office [address] [place] [phone] Age-related osteoporosis without current pathological fracture 06/12/2025 Telephone [facility] [address] [facility] [facility] Medical [address] [place] [address] Yasmine Prather MD 06/04/2025 6:35 PM CDT - 06/04/2025 11:59 PM CDT Hospital Encounter [facility] [address] [place] [address] Hypothyroidism, unspecified type; Depression, unspecified depression type Discharge Disposition: Discharge to home or self care 06/04/2025 11:15 AM CDT Office Visit [facility] [address] [place] [address] Tejinder Miller MD Hypothyroidism, unspecified type (Primary Dx); Depression, unspecified depression type from Last 3 Months Immunizations Immunization Administration Dates Next Due Influenza, Quad, Adjuvantate d, Intramuscular 08/26/2023 Influenza, Quadrivalent, Hig h Dose, Preservative Free, Intrr 08/04/2022,09/01/2021,07/20/2020 Influenza, Quadrivalent, Spl it, Preservative Free, Intramuscular 08/18/2015,08/18/2015 Influenza, Trivalent, High D ose, Split, Preservative Free, Intramuscular 08/13/2024,08/20/2019,08/20/2019,09/04,09/04/2018,09/08/2016,09/08/2016 Influenza, Trivalent, IM (MDV) 4,09/01/2014,08/05/2014,08/05 Influenza, Trivalent, Preser vative Free, Intramuscular 08/21/2013,08/21/2013 Influenza, Unspecified 08/24/2023 ZOSTER LIVE 10/22/2015,10/22/2015 Surgical History Surgery Date Site/Laterality Comments PATELLA SURGERY 10/01/2017 - 09/30/2018 Left CHOLECYSTECTOMY 10/01/2018 - 09/30/2019 KNEE ARTHROSCOPY 10/01/1969 - 09/30/1970 Left SHOULDER SURGERY Right Medical History Medical History Date Comments Thyroid disease PONV (postoperative nausea and vomiting) Mitral valve prolapse Family History Medical History Relation Name Comments Heart disease Father Hypertension Father Cancer Mother Hypertension Mother Osteoporosis Sister Family history of osteoporosis - (Added by TW Conv) Broken bones Neg Hx Hip fracture Neg Hx Kyphosis Neg Hx Scoliosis Neg Hx Relation Name Status Comments Father Mother Sister Social History Tobacco Use Types Packs/Day Years Used Date Smoking Tobacco: Never Smokeless Tobacco: Never Tobacco Cessation:Counseling Given: Not Answered AUDIT-C Answer Date Recorded Q1: How often do you have a drink containing alcohol? Never 03/03/2024 Q2: How many drinks containi ng alcohol do you have on a typical day when you are drinking? Patient does not drink Q3: How often do you have si x or more drinks on one occasion? Never 03/03/2024 Personal Safety Answer Date Recorded Have you ever been in or are you currently in a harmful physical or emotional relationship or is someone making you feel afraid or unsafe? 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 Gender Identity Female 09/01/2021 11:13 PM BRAND DESIGNER Sexual Orientation Not on file Obstetrics History Last Filed Vital Signs Vital Sign Reading Time Taken Comments Blood Pressure 158/82 06/04/2025 11:24 AM CDT Pulse 80 06/04/2025 11:24 AM CDT Temperature 37 C (98.6 F) 11/25/2024 12:11 PM BRAND DESIGNER Respiratory Rate 20 11/25/2024 12:11 PM BRAND DESIGNER Oxygen Saturation 100% 11/25/2024 12:19 PM BRAND DESIGNER Inhaled Oxygen Concentration - - Weight 74.2 kg (163 lb 9.6 oz) 06/12/2025 1:30 P M CDT Height 161.3 cm (5' 3.5) 06/12/2025 1:30 PM CDT Body Mass Index 28.53 06/12/2025 1:30 PM CDT Plan of Treatment Scheduled Procedures Name Priority Associated Diagnoses Date/Ti me COLONOSCOPY Encounter for screening colonoscopy COLONOSCOPY Encounter for screening colonoscopy Health Maintenance Due Date Last Done Comments Depression Screening 1950 Hepatitis C Screening 1950 DTaP/Tdap/Td Vaccine (1 - Tdap) 1962 Hepatitis B Screening 1969 Pneumococcal vaccine 65+ (1 of 1 - PCV) 2001 Zoster Vaccine (2 of 3) 12/17/2015 10/22/2015, 10/22 Well Visit 65+ 2016 Fall Risk Assessment 03/03/2025 03/03/2024 Covid-19 Vaccine (4 - 2024-2 6 season) 2025 09/16/2021, 12/21/2020, 11/30/2020 Influenza Vaccine (#1) 2025 , 08/26/2023, 08/24/2023, Additional history exists Breast Cancer Screening-Mammogram 02/17/2026 02/17/2025, 01/29/2024, 01/02/2023, Additional history exists Colon Cancer Screening-Colonoscopy 05/30/2027 Osteoporosis Screening-Bone Density Scan 06/12/2027 06/12/2025, 01/11/2024, 09/11/2022, Additional history exists Medical Devices Implanted Type Area Psych Assistant Device Identifier Shelf Expiration Date Model / Serial / Lot [employer] Corkscrew Suturetape 5.5mm 14.7mm Bioabsorbable Full Thread 1.3mm Ar-[id number] - [id number] Implanted:Qty: 1 on 03/03/2024 by Kush Alicea MD at [facility] Right: Shoulder [employer] [id number] 09/30/2025 AR-1927BC T / / [id number] [employer] Corkscrew Suturetape 5.5mm 14.7mm Bioabsorbable Full Thread 1.3mm Ar-[id number] - [id number] Implanted:Qty: 1 on 03/03/2024 by Kush Alicea MD at [facility] Right: Shoulder [employer] [id number] 09/30/2025 AR-1927BC T / / [id number] [employer] Fiberloop 3.2mm Drill Pin Needle [place] [employer] Cannula Kit Suture Ar-2290 - [id number] Implanted:Qty: 1 on 03/03/2024 by Kush Alicea MD at [facility] Right: Shoulder [employer] [id number] 08/30/2028 [place]-[id number] / / [id number] Procedures Procedure Name Priority Date/Time Associated Diagnosis Comments DEXA TBS AXIAL SKELETON BONE DENSITY 1 OR MORE SITES Schedule Routine, Read Routine (OP Routine) 06/12/2025 1:22 PM CDT Age-related osteoporosis without current pathological fracture URINALYSIS AND REFLEX TO MICROSCOPIC AND CULTURE Routine 06/04/2025 6:35 PM CDT Hypothyroidism, unspecified type Depression, unspecified depression type BASIC METABOLIC PANEL Routine 06/04/2025 12:16 PM CDT Hypothyroidism, unspecified type Depression, unspecified depression type T4, FREE Routine 06/04/2025 12:16 PM CDT Hypothyroidism, unspecified type Depression, unspecified depression type TSH Routine 06/04/2025 12:16 PM CDT Hypothyroidism, unspecified type Depression, unspecified depression type SCREENING MAMMOGRAM 2D BILATERAL Schedule Routine, Read Routine (OP Routine) 10/28/2020 from Last 3 Months or Most Recently Relevant to Health Maintenance Results * Dexa TBS Axial Skeleton Bone Density 1 or more sites (06/12/2025 1:22 PM CDT) Anatomical Region Laterality Modality Wrist, Body N/A Radiographic Berta ging Narrative 06/12/2025 4:40 PM CDT Patient Name: Emily Ash Date of : 1950 Date of scan: 06/12/2025 Bone mineral density was performed on a [employer] Discovery Densitometer. Based on machine cross-calibration and precision studies the least significant changes of this densitometer is 0.024 g/cm2 at the spine, 0.020 g/cm2 at the total proximal femur, and 0.014g/cm2 at the forearm. HISTORY: This is a 74 y.o. postmenopausal female with a history of low bone mass, thyroid disease, and vitamin D deficiency. She reports that she has never smoked. She has never used smokeless tobacco. Currently on treatment with calcium, vitamin D, and thyroid hormone, previously treated with risedronate (Actonel), zoledronic acid (Reclast), hormone replacement therapy, and diuretics, and current complaint of back pain and leg pain. INDICATIONS: Menopause status, vitamin D deficiency, and history of low bone mass. FINDINGS: BONE MINERAL DENSITY OF THE LUMBAR SPINE Bone Mineral Density (BMD) of the lumbar spine was measured from L1-L4 and the average density was calculated to be 0.848 gm/cm2. This corresponds to a T-score (standard deviations from the mean of young adults) of -1.8. When compared to the previous study of 09/11/2022 there has been no significant changes in bone density. BONE MINERAL DENSITY OF THE PROXIMAL FEMUR Bone Mineral Density (BMD) of the left hip total was found to be 0.786 gm/cm2. This corresponds to a T-score standard deviations from the mean of young adults of -1.3. Femoral neck is 0.729 gm/cm2 with a T-score (standard deviations from the mean of young adults) of -1.1. When compared to the previous study of 09/11/2022 there has been a 0.021 gm/cm (2.7%) increase in bone density that is considered significant. SUMMARY: Bone mineral density shows evidence of low bone mass at the lumbar spine and proximal femur and moderately increased fracture risk (Osteopenia). There has been a significant increase in bone density since previous measurement. The lumbar spine Trabecular Bone Score is 1.280 which suggests partially degraded bone microarchitecture compared to the general population. Final decisions regarding diagnostic or therapeutic recommendations should include BMD, TBS, additional clinical risk factors as well the clinical context of the patient. Please see attached TBS results for further details. ADDITIONAL COMMENTS: Postmenopausal Women and Men Over 50: Diagnostic criteria: Osteoporosis: BMD at or below -2.5 T-score; Osteopenia (low bone mass): BMD between -1.0 and -2.5 T-score. If the patient has a history of a fragility fracture, a fracture that occurred with trauma equivalent to a fall from a standing position or less, then the diagnosis is osteoporosis regardless of bone density. The history and data sections of the bone mineral density scan were prepared by Kavya Hooks) EDGAR who is accredited by the International Society of Clinical Densitometry. The overall patient assessment and scan interpretation were performed by Yasmine Prather M.D. who is certified by the International Society of Clinical Densitometry. [id number] Yasmine Prather MD IMG DXA PROCEDURES Final Re sult * Urinalysis reflex to microscopic and culture Urine (06/04/2025 6:35 PM CDT) Color, ur Straw Yellow Clarity, ur Clear Clear [facility] Specific gravity, ur 1.010 1.003 - 1.030 [facility]ER B[facility] pH, urine 6.5 [facility] Comment: Interpretive Data U rine pH is affected by diet, medications, systemic acid-base disturbances, and renal tubular function. pH may affect urinary stone formation. For example, urine pH below 6.0 may help reduce the tendency for calcium phosphate stones and pH greater than 6.0 may reduce the tendency for uric acid stone formation. Source: [facility] [employer] Current Interpretive Data was last revised on 2017 Protein, ur ql Negative Negative [facility] Glucose, ur ql Negative Negative [facility] Ketones, ur Negative Negative [facility] Bilirubin, ur Negative Negative [facility] Blood, ur Negative Negative [facility] Urobilinogen, ur <2.0 <2.0 mg/dL [facility] Nitrite, ur Negative Negative [facility] Leukocyte esterase, ur Negative Negative [facility] UA reflex comment Reflex conditions for microscopic UA and culture not met. [facility] Urine 06/04/2025 6:35 PM CDT 06/04/2025 8:04 PM CDT Tejinder Miller MD LAB MICROBIOLOGY - GENERAL OR DERABLES Final Result [facility] Department [place] [address] * TSH (06/04/2025 12:16 PM CDT) TSH 4.02 0.27 - 4.20 uIU/mL [facility] Blood 06/04/2025 12:1 6 PM CDT 06/04/2025 12:42 PM CDT us Tejinder Miller MD LAB BLOOD ORDERABLES Final Re sult Performing Organization Address City/[facility]/ZIP Co de Phone Number [facility] [address] [facility] [address] [place] [address] * T4, free (06/04/2025 12:16 PM CDT) Free T4 1.24 0.93 - 1.70 ng/dL [facility] Blood 06/04/2025 12:1 6 PM CDT 06/04/2025 12:42 PM CDT us Tejinder Miller MD LAB BLOOD ORDERABLES Final Re sult Performing Organization Address [facility] de Phone Number [facility] [address] [facility] [address] * (ABNORMAL) Basic metabolic panel (06/04/2025 12:16 PM CDT) Glucose 92 74 - 200 mg/dL [facility] BUN 16(L) 18 - 23 mg/dL [facility] Creatinine 1.0 0.7 - 1.3 mg/dL [facility] BUN/Creat Ratio 15 Ratio [facility] Calcium 9.9 8.8 - 10.2 mg/dL [facility] Sodium 136 135 - 145 mEq/L [facility] Potassium 4.3 3.5 - 5.1 mEq/L [facility] Chloride 101 98 - 107 mEq/L [facility] CO2 24.1 22.0 - 32.0 mEq/L [facility] Anion Gap 11 3 - 12 mEq/L [facility] eGFR 58.21 [facility] Blood 06/04/2025 12:1 6 PM CDT 06/04/2025 12:42 PM CDT us Tejinder Miller MD LAB BLOOD ORDERABLES Final Re sult [facility] [address] 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
--- NOTE | 2025-07-12 18:14 | PC.NURSE ---
Pt c-spine and spine were cleared at the scene, as reported by EMS.
[2025-07-12 18:15] LABS: Estimated Glomerular Filt Rate 54
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
[2025-07-12 18:55] VITALS: BP 175/85; PULSE 100; RESP 18; O2SAT 98
[2025-07-12] MEDS: ONDANSETRON INJ 4 MG/2 ML VIAL IV PUSH (18:55)
[2025-07-12 18:57] LABS: Hematocrit 32.9 % (37.0-47.0); Hemoglobin 11.0 g/dL (12.0-15.0); Immature Granulocyte Percent A 0.5 % (0-0.5); Lymphocytes Absolute Auto 1.02 K/mm3 (0.9-3.2); Mean Corpuscular HGB Conc 33.4 g/dl (32-36); Mean Corpuscular Hemoglobin 28.9 pg (26-34); Mean Corpuscular Volume 86.6 fl (80-100); Nucleated Red Blood Cells Absolute Auto 0.000 K/mm3 (0.0-0.012); Nucleated Red Blood Cells Perc 0.0 % (0.0-0.2); Platelet Count Result 363 k/mm3 (150-375); Red Blood Count 3.80 M/mm3 (4.2-5.4); White Blood Count 13.7 K/mm3 (4.5-10.0)
[2025-07-12 19:06] LABS: Alanine Aminotransferase 42 U/L (6-35); Albumin Level 4.1 g/dL (3.5-5.1); Alkaline Phosphatase 86 U/L (38-126); Anion Gap 13 mmol/L (4-12); Aspartate Amino Transferase 86 U/L (14-36); Bilirubin,Total 0.6 mg/dL (0.2-1.3); Blood Urea Nitrogen 18 mg/dL (7-17); Calcium 9.0 mg/dL (8.4-10.2); Carbon Dioxide 17 mmol/L (22-30); Chloride 102 mmol/L (98-107); Estimated Glomerular Filt Rate > 60; Glucose 126 mg/dL (65-110); Potassium 3.6 mmol/L (3.4-5.0); Sodium 132 mmol/L (137-145); Total Protein 7.3 g/dL (6.3-8.2)
[2025-07-12 19:08] LABS: INR 1.0; Prothrombin Time 13.4 Seconds (11.1-14.7)
[2025-07-12 19:09] LABS: Partial Thromboplastin Time 25.9 Seconds (22.3-36.8)
[2025-07-12] MEDS: HYDROmorphone HCL INJ (*CRX) 1 MG/ML SYR 0.5 MG IV PUSH (21:36)
[2025-07-13] MEDS: HYDROmorphone HCL INJ (*CRX) 1 MG/ML SYR 0.5 MG IV PUSH ×2 (01:33→04:30)
[2025-07-13 05:09] VITALS: BP 139/72; PULSE 67; RESP 18; O2SAT 99
== END 2025-07-13 05:13 | disposition short-term general hospital (02) ==
PROVIDERS: Emergency Provider Registered Nurse; PCP Internal Medicine
DX: S06.0X0A Concussion without loss of consciousness, initial encounter (principal); S00.83XA Contusion of other part of head, initial encounter; S82.142A Displaced bicondylar fracture of left tibia, initial encounter for closed fracture; S82.255A Nondisplaced comminuted fracture of shaft of left tibia, initial encounter for closed fracture; R41.82 Altered mental status, unspecified; E03.9 Hypothyroidism, unspecified; E78.00 Pure hypercholesterolemia, unspecified; M81.0 Age-related osteoporosis without current pathological fracture; M19.011 Primary osteoarthritis, right shoulder; F32.A Depression, unspecified; F41.9 Anxiety disorder, unspecified; Z90.49 Acquired absence of other specified parts of digestive tract; Y93.55 Activity, bike riding; Z79.899 Other long term (current) drug therapy; I45.10 Unspecified right bundle-branch block; R94.31 Abnormal electrocardiogram [ECG] [EKG]; V11.4XXA Pedal cycle driver injured in collision with other pedal cycle in traffic accident, initial encounter
CPT/HCPCS: 36415; 70450; 70486; 71260; 72125; 73562; 74177; 80053; 82948; 85025; 85610; 85730; 93005; 96374; 96375; 96376; 99285; J1171; J2405; L0140; Q9967